=== PATIENT | female | born 1985 | race Caucasian/White ===

== ENCOUNTER 2017-12-07 09:09 | Outpatient (CLI) | payer OTHER | END 2017-12-07 14:44 | disposition home or self-care (01) | LOC: RX STUDY 09:09 | DX: Z31.69 Encounter for other general counseling and advice on procreation (principal) ==

== ENCOUNTER 2017-12-30 08:19 | Outpatient (CLI) | payer OTHER | END 2017-12-30 08:30 | disposition home or self-care (01) | LOC: MRI 08:19 | DX: I67.0 Dissection of cerebral arteries, nonruptured (principal); I10 Essential (primary) hypertension | CPT/HCPCS: 70553 ==

== ENCOUNTER 2020-10-27 08:06 | Outpatient (CLI) | payer OTHER | END 2020-10-27 08:17 | disposition home or self-care (01) | LOC: MRI 08:06 | DX: I67.6 Nonpyogenic thrombosis of intracranial venous system (principal) | CPT/HCPCS: 70544 ==